=== PATIENT | female | born 1945 | race Caucasian/White ===

== ENCOUNTER → 2017-12-02 10:54 | Outpatient (CLI) | payer MEDICARE, OTHER, SELFPAY | PROVIDERS: Visit Provider Physician Assistant | DX: R39.9 Unspecified symptoms and signs involving the genitourinary system (principal) | CPT/HCPCS: 87077; 87086; 87186 ==

== ENCOUNTER → 2018-02-07 10:19 | Outpatient (CLI) | payer MEDICARE, OTHER, SELFPAY ==
--- NOTE | 2018-02-07 | DI.RAD.S_ITS ---
PROCEDURE: XR HUMERUS LT 2V INDICATIONS: PAIN/INJURY FELL 1 WEEK AGO TECHNIQUE: 2 views of the humerus were acquired. COMPARISON: None. FINDINGS: Bones: No fractures or dislocations. No suspicious bony lesions. Soft tissues: No suspicious soft tissue calcifications. IMPRESSION: No trauma found. 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 joint. Dictated by: Valentin Rodriguez M.D. on 02/07/2018 at 11:18 Approved by: Valentin Rodriguez M.D. on 02/07/2018 at 11:18
--- NOTE | 2018-02-07 | DI.RAD.S_ITS ---
PROCEDURE: XR ELBOW LT MIN 3V INDICATIONS: PAIN/INJURY, FELL 1 WEEK AGO TECHNIQUE: 3 views of the elbow were acquired. COMPARISON: None. FINDINGS: Bones: No fractures or dislocations. No suspicious bony lesions. Soft tissues: No elbow joint effusion. No suspicious soft tissue calcifications. IMPRESSION: No trauma found. Dictated by: Valentin Rodriguez M.D. on 02/07/2018 at 11:18 Approved by: Valentin Rodriguez M.D. on 02/07/2018 at 11:18
== END ==
PROVIDERS: Family Provider Family Medicine; Visit Provider Family Medicine
DX: M25.522 Pain in left elbow (principal); M19.012 Primary osteoarthritis, left shoulder
CPT/HCPCS: 73060; 73080

== ENCOUNTER → 2018-09-22 13:15 | Outpatient (REF) | payer MEDICARE, OTHER, SELFPAY | LOC: LAB 13:15 | PROVIDERS: Family Provider Family Medicine; Visit Provider Family Medicine | DX: N39.0 Urinary tract infection, site not specified (principal); R30.0 Dysuria | CPT/HCPCS: 87077; 87086; 87186 ==

== ENCOUNTER → 2019-01-14 11:11 | Outpatient (CLI) | payer MEDICARE, OTHER, SELFPAY ==
--- NOTE | 2019-01-14 | DI.RAD.S_ITS ---
PROCEDURE: XR TIBIA FUBULA RT 2V INDICATIONS: Right LOWER LEG/CALF PAIN/BRUISING TECHNIQUE: 2 views of the tibia and fibula were acquired. COMPARISON: None. FINDINGS: Bones: No fractures or dislocations. No suspicious bony lesions. Soft tissues: No suspicious soft tissue calcifications or masses. IMPRESSION: No acute bony injuries. Dictated by: Shantanu Valdovinos M.D. on 01/14/2019 at 11:38 Approved by: Shantanu Valdovinos M.D. on 01/14/2019 at 11:39
== END ==
PROVIDERS: Family Provider Family Medicine; Visit Provider Family Medicine
DX: M79.661 Pain in right lower leg (principal)
CPT/HCPCS: 73590

== ENCOUNTER → 2019-08-05 13:39 | Outpatient (CLI) | payer MEDICARE, OTHER, SELFPAY | PROVIDERS: Family Provider Family Medicine; PCP Family Medicine; Referring Provider Family Medicine; Visit Provider Family Medicine | DX: M85.852 Other specified disorders of bone density and structure, left thigh (principal); Z78.0 Asymptomatic menopausal state; E07.9 Disorder of thyroid, unspecified; E11.9 Type 2 diabetes mellitus without complications; Z90.722 Acquired absence of ovaries, bilateral | CPT/HCPCS: 77080 ==

== ENCOUNTER → 2020-10-30 14:41 | Outpatient (CLI) | payer MEDICARE, OTHER, SELFPAY ==
--- NOTE | 2020-10-30 | DI.US.S_ITS ---
PROCEDURE: US THYROID INDICATIONS: Nontoxic single thyroid nodule TECHNIQUE: Real-time scanning was performed of the thyroid gland, with image documentation. COMPARISON: None. FINDINGS: Right: Thyroid lobe measures 3.9 x 1.4 x 1.4 cm, and is mildly heterogeneous in echotexture. Left: Thyroid lobe measures 4.0 x 1.2 x 1.4 cm, and is mildly heterogeneous in echotexture. Isthmus: 3.0 mm thick. IMPRESSION: Mildly heterogeneous thyroid and no focal nodule seen. Dictated by: Boyd Azevedo Everardo Interpreted: Daljit Ruiz MD on 10/30/2020 at 16:40 Transcribed by: FAUSTO on 10/30/2020 at 16:40 Approved by: Daljit Ruiz M.D. on 10/30/2020 at 16:55
== END ==
PROVIDERS: Family Provider Family Medicine; PCP Family Medicine; Referring Provider Family Medicine; Visit Provider Family Medicine
DX: E04.1 Nontoxic single thyroid nodule (principal)
CPT/HCPCS: 76536

== ENCOUNTER → 2020-11-13 10:13 | Outpatient (CLI) | payer MEDICARE, OTHER, SELFPAY ==
--- NOTE | 2020-11-13 | DI.RAD.S_ITS ---
PROCEDURE: FL BARIUM SWALLOW W SPEECH INDICATIONS: Dysphagia, unspecified COMPARISON: None. TECHNIQUE: Examination was conducted in conjunction with speech pathology per standard protocol. In the lateral projection, filming was performed of the patient swallowing. AP projection filming may also be performed with patient swallowing. COMPARISON: FINDINGS: Function: The oral preparatory phase appears normal, with proper containment. The subsequent oral propulsive phase, pharyngeal phase, and esophageal phase of swallowing also appear normal with all proffered substances. No laryngotracheal penetration or aspiration. No pathologic vallecular pooling. Morphology: No cricopharyngeal bar is identified. No cervical esophageal webs. No Zenker's diverticulum. No strictures. IMPRESSION: Normal examination. Please also refer to the dedicated speech therapy swallowing evaluation report which will be independently generated. Dictated by: Valentin Rodriguez M.D. on 11/13/2020 at 12:31 Approved by: Valentin Rodriguez M.D. on 11/13/2020 at 12:31
--- NOTE | 2020-11-13 13:44 | ST.SWALLOW ---
Visit Care Team Role Provider Type Sumi Christy MD Attending Provider Physician Family Provider Primary Care Provider Referring Provider Specialty: [facility] Practice Address: [address] [place] [address], [address], [place], [address] Email: [email or web address] Modified Barium Swallow Study VOLUNTEER PATIENT REPRESENTATIVE Modified Barium Swallow Study Start: 11/13/20 11:53 Freq: Status: Active Protocol: Document 11/13/20 11:54 LNK (Rec: 11/13/20 11:56 LNK [id number]) Modified Barium Swallow Study Total Time Visit Start Time 10:30 Visit Stop Time 11:00 Total Visit Minutes [address] Christy Reason for Referral dysphagia Setting Setting Outpatient Care Patient Information Identification Type Name,Date of Patient History Pt seen for a Modified Barium Swallow Study at the referral of her physician, Dr. Christy. According to the pt, she does not think she has a swallowing problem, but she c/ o tenderness on the left side of her neck near the thyroid. She reported that sometimes her throat feels thick. Medical history includes radiation therapy many years ago for her adenoids. She described the treatment as shooting radiation upward from under my chin. She denied choking or aspirating liquids or solids. Subjective Observations Pt was seated in the fluoroscopy chair. Instructions and procedures were reviewed with the pt, who indicated she understood and agreed to proceed. Patient Positioning Position View Lat-A/P Imaging Lateral View Textures Administered Trials Presented Thin Liquid via Spoon,Thin Liquid via Cup,Pudding Thick Liquid via Spoon,Regular Textures Oral Phase Source: MBSIMP (TM) (C) Bolus Specific Scoring Grid Lip Closure No Impairment (WNL) Tongue Control During Bolus Hold No Impairment (WNL) Bolus Prep/Mastication No Impairment (WNL) Bolus Transport/Lingual Motion WFL A/P Lingual Propulsion Delay No Oral Residue WFL Residue Clearing WFL Nasal Regurgitation No Additional Oral Phase Observations Diadochokinesis was WNL. Pt dentition was natural and in good hygiene. Mouth was observed to be dry. Pharyngeal Phase Source: MBSIMP (TM) (C) Bolus Specific Scoring Grid Delayed Initiation of Pharyngeal Swallow No Soft Palate Elevation No Impairment (WNL) Tongue Base Strength/Range of Motion No Impairment (WNL) Residue Along the Tongue Base No Laryngeal Elevation No Impairment (WNL) Anterior Hyoid Movement No Impairment (WNL) Epiglottic Range of Motion No Impairment (WNL) Vallecular Residue No Laryngeal Vestibular Closure No Impairment (WNL) Pharyngeal Stripping Wave No Impairment (WNL) Pharyngeal Contraction No Impairment (WNL) Posterior Pharyngeal Wall Residue No Upper Esophageal Sphincter Opening No Impairment (WNL) Residue in the Pyriform Sinuses No Esophageal Clearance Upright Position Mild Impairment Pharyngoesophageal Backflow Observed No Additional Pharyngeal Phase Observations Pharyngeal structures and function were observed to be WNL. There was slight contrast residue noted in the upper portion of the esophagus below the UES. A/P View Textures Administered Trials Presented Thin Liquid via Spoon,Barium Tablet A/P View Observations Pharyngeal Contraction No Impairment (WNL) Vocal Fold Function Good Esophageal Function Slowed Clearing,Stasis Esophageal Clearance Upright Position Mild Impairment Esophageal Observations Esophageal Function A screening of the esophageal phase of the swallow was completed. Esophageal retention mid-chest area was noted. During a liquid trial, the bolus followed a esophageal deversion to the left as if around a small ball . This diversion was located near the first rib/sternal area. The bolus flow was not impeded by this diversion. The barium tablet was observed to stop briefly at the valeculla , but then passed to the stomach without difficulty. Clinical Impressions Dysphagia Type Normal swallow function Patient Appropriate for Therapy No Recommendations Diet Liquids Order Thin Diet Order Regular Medication Recommendation As Tolerated Treatment Plan Recommended Referrals Primary Care Physician
== END ==
PROVIDERS: Family Provider Family Medicine; PCP Family Medicine; Referring Provider Family Medicine; Visit Provider Family Medicine
DX: R13.10 Dysphagia, unspecified (principal)
CPT/HCPCS: 74230; 92611

== ENCOUNTER → 2021-09-20 10:39 | Outpatient (CLI) | payer MEDICARE, OTHER, SELFPAY | PROVIDERS: Family Provider Family Medicine; PCP Family Medicine; Referring Provider Family Medicine; Visit Provider Family Medicine | DX: M85.89 Other specified disorders of bone density and structure, multiple sites (principal); Z13.820 Encounter for screening for osteoporosis; Z78.0 Asymptomatic menopausal state; Z90.710 Acquired absence of both cervix and uterus | CPT/HCPCS: 77080 ==

== ENCOUNTER → 2023-04-17 13:02 | Outpatient (CLI) | payer MEDICARE, OTHER, SELFPAY ==
--- NOTE | 2023-04-17 | DI.RAD.S_ITS ---
PROCEDURE: XR FOREARM LT 2V INDICATIONS: hematoma TECHNIQUE: 2 views of the forearm were acquired. COMPARISON: None. FINDINGS: Bones: No fractures or dislocations. No suspicious bony lesions. Soft tissues: No suspicious soft tissue calcifications or masses. Mild soft tissue swelling of the left mid forearm. IMPRESSION: Mild mid left forearm soft tissue swelling without underlying fracture or dislocation. Dictated by: Gustavo Sheffield M.D. on 04/17/2023 at 17:25 Approved by: Gustavo Sheffield M.D. on 04/17/2023 at 17:26
== END ==
PROVIDERS: Family Provider Family Medicine; PCP Family Medicine; Referring Provider Family Medicine; Visit Provider Family Medicine
DX: T14.8XXA Other injury of unspecified body region, initial encounter (principal); M79.89 Other specified soft tissue disorders
CPT/HCPCS: 73090

== ENCOUNTER → 2023-04-25 09:11 | Outpatient (CLI) | payer MEDICARE, OTHER, SELFPAY ==
--- NOTE | 2023-04-25 09:49 | DI.ECHO.S_ITS ---
[facility]---------+ [facility] +---------+ : : [address] : : : : [id number] : : : : Phone: [phone] Echocardiogram Report + + :Name: ANURADHA CONTRERAS Study Date: 04/25/2023 Height: 62 in : :[facility] ReadingLocation: Weight: 148 lb : : Gender: Female BSA: 1.7 m2 : :: 1945 Age: 77 yrs BP: 125/87 mmHg: :Reason For Study: CARDIAC MURMUR : :Ordering Physician: ANTONIA, : :THEA Performed By: Glenis Sanchez : :Referring: THEA KNIGHT : + + Interpretation Summary Normal left ventricle size with ejection fraction 60-65%. Diastolic parameters suggest a relaxation abnormality of the left ventricle, consistent with probable normal filling pressures. The left atrium is mildly dilated. The aortic valve is mildly calcified. Mild mitral annular calcification. Mild mitral regurgitation. Mild tricuspid regurgitation. Comparison is made with the echocardiogram of 08/07/2013, aortic valve calcification has progressed. Procedure: A two-dimensional transthoracic echocardiogram with color flow and Doppler was performed. The study quality was technically adequate. Comparison is made with the echocardiogram of 08/07/2013. The patient was in sinus rhythm with heart rates between 75-83 bpm during the exam. Left Ventricle: The left ventricle is normal in size and wall thickness. The ejection fraction is estimated to be 60-65%. There are no focal wall motion abnormalities. Diastolic parameters suggest a relaxation abnormality of the left ventricle, consistent with probable normal filling pressures. Right Ventricle: The right ventricle is normal in size and function. Atria: The left atrium is mildly dilated. Right atrial size is normal. There is no Doppler evidence for an interatrial shunt. Mitral Valve: There is mild mitral annular calcification. The mitral valve is normal in structure and function. There is mild mitral regurgitation. Aortic Valve: The aortic valve is trileaflet. The aortic valve opens well. The aortic valve is mildly calcified. There is no aortic valve stenosis. No aortic regurgitation is present. Tricuspid Valve: The tricuspid valve is normal in structure and function. There is mild tricuspid regurgitation. The right ventricular systolic pressure is estimated to be at least 32 mmHg based on an estimated right atrial pressure of 3 mm Hg. Pulmonic Valve: The pulmonic valve leaflets are thin and pliable; valve motion is normal. There is trace pulmonic regurgitation. Great Vessels: The aortic root is normal size. The dimensions of the ascending aorta are normal. The IVC is of normal diameter and collapses greater than 50% with a sniff. This suggests a low right atrial pressure of 3 mm Hg. Pericardium/ Pleura There is no pericardial effusion. There is no pleural effusion. MMode/2D Measurements & Calculations LVIDd: 4.2 cm LVOT diam: 2.0 cm LVIDs: 2.8 cm Ao root diam: 3.1 cm FS: 34.2 % asc Aorta Diam: 2.9 cm IVSd: 1.0 cm Ao Arch Diam (Prox Trans): 3.0 cm LVPWd: 1.0 cm LV ford. diameter/BSA (cm/m^2): 2.5 LV sys. diameter/BSA (cm/m^2): 1.6 LA A2 area: 22.7 cm2 RA long axis: 5.0 cm LA A4 area: 19.3 cm2 RA area: 14.2 cm2 LA length (vol): 5.1 cm RA vol: 34.1 ml LA vol: 72.8 ml RA : 20.3 ml/m2 LA vol index: 43.3 ml/m2 IVC diam: 1.6 cm RVD1 (basal): 3.2 cm RVD2 (mid): 2.4 cm TAPSE: 2.0 cm Doppler Measurements & Calculations Ao V2 max: 166.0 cm/sec LVOT Max Aman: 134.5 cm/sec Ao V2 mean: 124.3 cm/sec LV V1 max P.2 mmHg Ao max P.0 mmHg LV V1 VTI: 28.6 cm Ao mean P.6 mmHg SHU(I,D): 2.8 cm2 Ao V2 VTI: 31.9 cm SHU(V,D): 2.5 cm2 sev ratio: 0.90 SHU indexed to BSA (cm^2/m^2): 1.7 MV E max aman: 66.4 cm/sec TR max aman: 267.8 cm/sec MV A max aman: 90.1 cm/sec TR max P.7 mmHg MV E/A: 0.74 PA V2 max: 107.7 cm/sec Med Peak E' Aman: 4.6 cm/sec PA V2 mean: 79.3 cm/sec E/E' med: 14.5 PA mean P.7 mmHg Lat Peak E' Aman: 5.5 cm/sec PA pr(Accel): 22.5 mmHg E/E' lat: 12.2 E/e' average: 13.3 MV dec time: 0.39 sec SV(BENNIE): 89.4 ml Electronically signed by: Sanjuana Chacko on Reading Physician:04/25/2023 01:43 PM
== END ==
PROVIDERS: Family Provider Family Medicine; PCP Family Medicine; Referring Provider Family Medicine; Visit Provider Family Medicine
DX: R01.1 Cardiac murmur, unspecified (principal); I08.1 Rheumatic disorders of both mitral and tricuspid valves
CPT/HCPCS: 93306

== ENCOUNTER → 2023-11-09 10:42 | Outpatient (CLI) | payer MEDICARE, OTHER, SELFPAY ==
--- NOTE | 2023-11-09 10:44 | DI.RAD.S_ITS ---
PROCEDURE: XR DEXA AXIAL SKELETON INDICATIONS: disorders of bone density and structure COMPARISON: [facility], , XR DEXA AXIAL SKELETON, 09/20/2021, 10:52. [facility], CR, XR DEXA AXIAL SKELETON, 08/05/2019, 13:57. FINDINGS: Lumbar Spine: Bone mineral density 0.967 g/cm2, T score -0.7, increased by 1.6% when compared to the prior exam. Left Hip: Bone mineral density is 0.762 g/cm2, T score -1.5, increased by bone mineral density by 1.0% when compared to the prior exam. Left Femoral Neck: Bone mineral density is 0.683 g/cm2, T score -1.5. Right Hip: Bone mineral density 0.782 g/cm2, T score -1.3, decreased by bone mineral density by 0.6 % when compared to the prior exam. Right Femoral Neck: Bone mineral density is 0.699 g/cm2, T score -1.4. Fracture Risk Calculation (when applicable): 10-year fracture risk of a major osteoporotic fracture 12% and of a hip fracture 2.6%. (T score greater or equal to -1.0 to: NORMAL) (T score from -1.1 to -2.4: OSTEOPENIA) (T score less than or equal to -2.5: OSTEOPOROSIS) IMPRESSION: 1. By WHO criteria, patient has osteopenia. 2. 10-year fracture risk of a major osteoporotic fracture 12% and of a hip fracture 2.6%. Follow-up guidelines as follows: Osteoporosis: Consider a repeat DEXA and Vertebral Fracture Assessment (VFA) exam in 2 years or sooner if medically necessary, to reassess this patient's status. Osteopenia: Consider a repeat DEXA in 2-3 years to reassess this patient's status, or if there is a new clinical indication. Normal: Consider a repeat DEXA in 5 years or sooner, or if there is a new clinical indication. Approved by: Mahamed Matos M.D. on 11/09/2023 at 13:28
== END ==
LOC: RAD 10:43
PROVIDERS: Family Provider Family Medicine; PCP Family Medicine; Referring Provider Family Medicine; Visit Provider Family Medicine
DX: M85.89 Other specified disorders of bone density and structure, multiple sites (principal)
CPT/HCPCS: 77080

== ENCOUNTER → 2023-11-14 14:27 | Outpatient (CLI) | payer MEDICARE, OTHER, SELFPAY ==
--- NOTE | 2023-11-14 14:30 | DI.RAD.S_ITS ---
PROCEDURE: XR CERVICAL SPINE 2V OR 3V INDICATIONS: MUSCLE PAIN TECHNIQUE: 3 view(s) of the cervical spine were acquired. COMPARISON: None. FINDINGS: Bones: No fractures or dislocations to the T1 level. The lateral masses of C1 appear intact on the odontoid view. No suspicious bony lesions. There is trace retrolisthesis of C5 on C6. Multilevel degenerative disc space narrowing most severe at C4-5 and C5-6 and to a lesser degree C6-7. Multilevel uncovertebral arthropathy is present. Soft tissues: No prevertebral soft tissue swelling. IMPRESSION: Degenerative changes most severe from C4-5 through C6-7. Dictated by: Camryn Elliott M.D. on 11/14/2023 at 17:39 Approved by: Camryn Elliott M.D. on 11/14/2023 at 17:39
== END ==
PROVIDERS: Family Provider Family Medicine; PCP Family Medicine; Referring Provider Family Medicine; Visit Provider Family Medicine
DX: S46.812A Strain of other muscles, fascia and tendons at shoulder and upper arm level, left arm, initial encounter (principal); M47.812 Spondylosis without myelopathy or radiculopathy, cervical region; X58.XXXA Exposure to other specified factors, initial encounter
CPT/HCPCS: 72040

== ENCOUNTER → 2024-11-27 15:54 | Outpatient (CLI) | payer MEDICARE, OTHER, SELFPAY ==
--- NOTE | 2024-11-27 16:00 | DI.RAD.S_ITS ---
PROCEDURE: XR CHEST 2V INDICATIONS: PNEUMONIA TECHNIQUE: 2 views of the chest were acquired. COMPARISON: None. FINDINGS: Surgical changes and devices: None. Lungs and pleura: Lungs are clear. No pleural effusions or pneumothorax. Mediastinum: Mediastinal contours are normal. Heart size is normal. Bones and chest wall: No suspicious bony abnormalities. Soft tissues appear unremarkable. IMPRESSION: No acute cardiopulmonary abnormality is seen. Dictated by: Gregory Xie M.D. on 11/28/2024 at 10:24 Approved by: Gregory Xie M.D. on 11/28/2024 at 10:27
== END ==
PROVIDERS: Family Provider Family Medicine; PCP Family Medicine; Referring Provider Family Medicine; Visit Provider Family Medicine
DX: J18.9 Pneumonia, unspecified organism (principal)
CPT/HCPCS: 71046

== ENCOUNTER → 2025-05-26 11:49 | Outpatient (CLI) | payer MEDICARE, OTHER, SELFPAY ==
--- NOTE | 2025-05-26 11:50 | DI.CT.S_ITS ---
PROCEDURE: CT ABDOMEN PELVIS W CON INDICATIONS: Abdominal pain, lower left quadrant TECHNIQUE: After the administration of intravenous contrast, axial sections acquired from the lung bases to the pubic symphysis. Coronal and sagittal reformats were performed. For radiation dose reduction, the following was used: automated exposure control, adjustment of mA and/or kV according to patient size. COMPARISON: None. FINDINGS: Image quality: Diagnostic. Lower Chest: No significant findings. ABDOMEN: Liver: 1.8 cm and 1.3 cm hypodense lesions noted at the dome of the liver with possible septations or scarring noted centrally. No intrahepatic biliary dilation. Portal vein is patent. Gallbladder: No radiopaque gallstones or wall thickening. Biliary ducts: No biliary dilation. Pancreas: No ductal dilation. Spleen: Size is within normal limits. Adrenal Glands: No adrenal nodules. Kidneys and Ureters: No hydronephrosis. No solid mass. No complex renal cystic lesion which requires follow up. Stomach and Bowel: Normal colonic caliber, without significant wall thickening. Colon diverticulosis is noted without inflammatory changes concerning for acute diverticulitis. Peritoneum: No abnormal intraperitoneal fluid. No free air. Ventral Wall: No significant ventral hernia. Abdominal Nodes: No retroperitoneal or mesenteric adenopathy by size criteria. Vessels: Aorta and inferior vena cava are normal in size. Mild atheromatous plaques are noted in the nonaneurysmal abdominal aorta. PELVIS: Pelvic Organs: Status post hysterectomy. Bladder: No bladder wall thickening, accounting for underdistention. Pelvic Nodes: No enlarged lymph nodes. Miscellaneous: No inguinal hernias are seen. Bones: No aggressive osseous abnormality. Multilevel vacuum discs and degenerative disease predominately affecting the lower thoracic spine. Grade 1 L4 on L5 anterolisthesis. Facet arthropathy is most pronounced at L4-5 and L5-S1. IMPRESSION: No acute abnormality in abdomen or pelvis . Indeterminate 1.8 cm and 1.3 cm hypodense lesions at the dome of the liver with possible septations or scarring centrally. Imaging findings are nonspecific. Given ambiguity, recommend MRI with liver mass protocol for more definitive characterization. Dictated by: Joanne Woods M.D. on 05/26/2025 at 21:58 Approved by: Joanne Woods M.D. on 05/26/2025 at 22:15
== END ==
PROVIDERS: Family Provider Family Medicine; PCP Family Medicine; Referring Provider Family Medicine; Visit Provider Family Medicine
DX: K57.90 Diverticulosis of intestine, part unspecified, without perforation or abscess without bleeding (principal); K76.9 Liver disease, unspecified; R10.32 Left lower quadrant pain; Z90.710 Acquired absence of both cervix and uterus
CPT/HCPCS: 74177; Q9967

== ENCOUNTER → 2025-06-04 07:05 | Outpatient (CLI) | payer MEDICARE, OTHER, SELFPAY ==
--- NOTE | 2025-06-04 07:07 | DI.MRI.S_ITS ---
PROCEDURE: MR ABDOMEN LIVER PROTOCOL INDICATIONS: Liver lesion/Aortic valve calcification TECHNIQUE: Coronal HASTE, axial 2D FLASH in- and [id number]; axial breath-hold T2 FSE. Dynamic axial VIBE during the administration of contrast; post-contrast coronal VIBE or 2D FLASH with fat saturation from the hepatic dome to the iliac crests. Optional diffusion weighted imaging and ADC may be performed. COMPARISON: [facility], CT, CT ABDOMEN PELVIS W CON, 05/26/2025, 12:51. FINDINGS: Image quality: Diagnostic Lower chest: Unremarkable lung bases not well assessed however on MRI. Possible small hiatal hernia. Flow artifact is seen in the LVOT. Liver: Non cirrhotic liver contour. There are liver dome lesions . The larger lesion measures 1.6 cm with high T2 signal. Typical discontinuous nodular enhancement is seen on venous phase, with fill-in on delayed phase. No suspicious focal liver lesion. Gallbladder and biliary system: Possible small gallstones. No biliary ductal dilation Pancreas: No ductal dilation Spleen: No splenomegaly Adrenals: No discrete nodules Kidneys: Small cysts. No hydronephrosis. Vessels and lymph nodes: The main portal vein is patent. No abdominal aortic aneurysm. No lymph nodes enlarged by size criteria Bowel and peritoneum: No bowel obstruction. Moderate colonic fecal loading. No drainable abscess or ascites. Body wall: Unremarkable Bones: There are degenerative osseous changes. No aggressive appearing osseous abnormality IMPRESSION: Liver dome lesions are again seen, with typical imaging characteristics for cavernous hemangioma. No suspicious focal lesion. Focal flow artifact is seen at the cardiac LVOT and aortic root. Correlate echocardiography for any LVOT or aortic valve stenosis. Other findings above. Dictated by: Jose Angel Ruff M.D. on 06/04/2025 at 9:41 Approved by: Jose Angel Ruff M.D. on 06/04/2025 at 9:48
== END ==
LOC: MRI 07:06
PROVIDERS: Family Provider Family Medicine; PCP Family Medicine; Referring Provider Family Medicine; Visit Provider Family Medicine
DX: K76.9 Liver disease, unspecified (principal); I34.0 Nonrheumatic mitral (valve) insufficiency; I35.9 Nonrheumatic aortic valve disorder, unspecified; N28.1 Cyst of kidney, acquired
CPT/HCPCS: 74183; A9579

== ENCOUNTER → 2025-06-05 06:49 | Outpatient (CLI) | payer MEDICARE, OTHER, SELFPAY | PROVIDERS: Family Provider Family Medicine; PCP Family Medicine; Referring Provider Family Medicine; Visit Provider Family Medicine | DX: I07.1 Rheumatic tricuspid insufficiency (principal) | CPT/HCPCS: 93306 ==